=== PATIENT | male | born 1935 | race Caucasian/White ===

== ENCOUNTER 2017-01-14 10:40 | Inpatient (IN) | payer MEDICARE, OTHER ==
[~2017-01-14 10:40] MED LIST: ASPIRIN81 M1 PO; GLUCOPHAGE500 M3 PO; LOSARTAN-HCTZ1 EAC5 PO; METOPROLOL SUCC50 M1 PO; NORVASC5 M2 PO; OMEPRAZOLE40 M2 PO; PROBIOTIC1 EA10 PO; VITAMIN D32000 UNI2 PO
[2017-01-15 06:13] LABS: BASO % 0.1 % (0-2); HCT-HEMATOCRIT 34.4 % (36.0-53.5); HGB-HEMOGLOBIN 11.9 gm/dl (13.5-17.0); IMMATURE GRANULOCYTES ABSOLUTE 0.07 tho/cmm (0-0.03); IMMATURE GRANULOCYTES PERCENT 0.5 % (0-0.3); LYMPH % 5.3 % (20-45); LYMPH ABSOLUTE COUNT 0.8 tho/cmm (0.8-4.5); MCH (MEAN CORPUSCULAR HGB) 31.4 pg (28.0-32.0); MCHC MEAN CORPUSCULAR HGB CONC 34.6 % (32.0-36.0); MCV (MEAN CELL VOLUME) 90.8 fl (82.0-96.0); MEAN PLATELET VOLUME 8.8 cmc (9.4-12.4); MONO % 7.8 % (0-12); MONOCYTE ABSOLUTE COUNT 1.2 tho/cmm (0.0-1.2); NEUTROPHIL ABSOLUTE COUNT 13.3 tho/cmm (1.6-8.0); NEUTROPHIL-AUTOMATED 13.3 tho/cmm (1.6-8.0); NEUTROPHILS % 86.3 % (40-80); PLATELET COUNT 236 tho/cmm (150-450); RED BLOOD COUNT 3.79 mil/cmm (4.40-5.70); RED CELL DISTRIBUTION WIDTH 12.5 % (12.4-16.4); WHITE BLOOD COUNT 15.4 tho/cmm (4.0-10.0)
[2017-01-16] MEDS ORDERED: ROXICODONE5 M2 PO (08:54)
[2017-01-16] MEDS ORDERED: ULTRAM50 M1 PO (08:54)
[2017-01-16] MEDS ORDERED: TYLENOL325 M2 PO (08:55)
[2017-01-16] MEDS ORDERED: SENNA PLUS TAB1 EAC1 PO (08:57)
[2017-01-16] MEDS ORDERED: MOBIC7.5 M2 PO (08:58)
[2017-07-24] MEDS ORDERED: FLOMAX0.4 M1 PO (14:29)
[2017-07-24] MEDS ORDERED: TYLENOL PM EX-1 EAC4 PO (14:31)
[2017-07-30] MEDS ORDERED: COZAAR100 M1 PO (12:45)
[2017-07-30] MEDS ORDERED: ASPIRIN81 M1 PO (12:46)
[2017-07-30] MEDS ORDERED: MOBIC7.5 M2 PO (12:47)
[2017-07-30] MEDS ORDERED: ROXICODONE5 M2 PO (12:48)
[2017-07-30] MEDS ORDERED: ULTRAM50 M1 PO (12:50)
[2017-07-30] MEDS ORDERED: TYLENOL325 M2 PO (12:52)
[2017-07-30] MEDS ORDERED: MILK OF MAGNESIA PO (12:53)
== END 2017-01-16 15:03 | DRG 489 ==
LOC: SHSC 10:40 → ORE 12:30 → PACU 15:11 → 5EA 15:46
PROVIDERS: ADMIT Orthopaedic Surgery Foot and Ankle Surgery
PROC: 0SW Lower Joints, Revision (ICD-10-PCS; principal; 2017-01-14)
DX: T84.022A Instability of internal right knee prosthesis, initial encounter (principal); E11.9 Type 2 diabetes mellitus without complications; T84.032A Mechanical loosening of internal right knee prosthetic joint, initial encounter; I10 Essential (primary) hypertension; I71.4 Abdominal aortic aneurysm, without rupture
CPT/HCPCS: C1713; C1776; J0171; J0690; J1815; J1885; J2270; J2795; J3370

== ENCOUNTER 2017-01-27 11:07 | Day surgery (SDC) | payer MEDICARE, OTHER ==
[~2017-01-27 11:07] MED LIST changes: +MOBIC7.5 M2 PO; +ROXICODONE5 M2 PO; +SENNA PLUS TAB1 EAC1 PO; +TYLENOL325 M2 PO; +ULTRAM50 M1 PO
[2017-01-28 06:11] LABS: BASO % 0.5 % (0-2); EOS % 1.4 % (0-7); EOSINOPHIL ABSOLUTE COUNT 0.1 tho/cmm (0.0-0.7); HCT-HEMATOCRIT 31.7 % (36.0-53.5); HGB-HEMOGLOBIN 10.9 gm/dl (13.5-17.0); IMMATURE GRANULOCYTES ABSOLUTE 0.08 tho/cmm (0-0.03); IMMATURE GRANULOCYTES PERCENT 0.9 % (0-0.3); LYMPH % 18.1 % (20-45); LYMPH ABSOLUTE COUNT 1.6 tho/cmm (0.8-4.5); MCH (MEAN CORPUSCULAR HGB) 32.2 pg (28.0-32.0); MCHC MEAN CORPUSCULAR HGB CONC 34.4 % (32.0-36.0); MCV (MEAN CELL VOLUME) 93.5 fl (82.0-96.0); MEAN PLATELET VOLUME 8.3 cmc (9.4-12.4); MONO % 9.8 % (0-12); MONOCYTE ABSOLUTE COUNT 0.8 tho/cmm (0.0-1.2); NEUTROPHILS % 69.3 % (40-80); PLATELET COUNT 268 tho/cmm (150-450); RED BLOOD COUNT 3.39 mil/cmm (4.40-5.70); RED CELL DISTRIBUTION WIDTH 14.9 % (12.4-16.4); WHITE BLOOD COUNT 8.6 tho/cmm (4.0-10.0)
[2017-07-24] MEDS ORDERED: FLOMAX0.4 M1 PO (14:29)
[2017-07-24] MEDS ORDERED: TYLENOL PM EX-1 EAC4 PO (14:31)
[2017-07-30] MEDS ORDERED: COZAAR100 M1 PO (12:45)
[2017-07-30] MEDS ORDERED: ASPIRIN81 M1 PO (12:46)
[2017-07-30] MEDS ORDERED: MOBIC7.5 M2 PO (12:47)
[2017-07-30] MEDS ORDERED: ROXICODONE5 M2 PO (12:48)
[2017-07-30] MEDS ORDERED: ULTRAM50 M1 PO (12:50)
[2017-07-30] MEDS ORDERED: TYLENOL325 M2 PO (12:52)
[2017-07-30] MEDS ORDERED: MILK OF MAGNESIA PO (12:53)
== END 2017-01-28 11:45 ==
LOC: SRG 11:07 → SHSB 11:18 → SHSC 11:23 → SHSB 12:10 → ORE 15:41 → PACU 16:43 → CAR1 17:35
PROVIDERS: Orthopaedic Surgery Foot and Ankle Surgery
PROC: 0S9C0ZZ Drainage of Right Knee Joint, Open Approach (ICD-10-PCS; principal; 2017-01-27)
DX: M96.840 Postprocedural hematoma of a musculoskeletal structure following a musculoskeletal system procedure (principal); I10 Essential (primary) hypertension; E11.9 Type 2 diabetes mellitus without complications; K44.9 Diaphragmatic hernia without obstruction or gangrene; Z79.1 Long term (current) use of non-steroidal anti-inflammatories (NSAID); Z79.82 Long term (current) use of aspirin; Z79.84 Long term (current) use of oral hypoglycemic drugs; Z79.899 Other long term (current) drug therapy; Z87.891 Personal history of nicotine dependence; Z96.651 Presence of right artificial knee joint; Z98.890 Other specified postprocedural states
CPT/HCPCS: G8978-GP-CJ; G8979-GP-CJ; G8980-GP-CJ; J0690